=== PATIENT | male | born 1965 | race Caucasian/White ===

== ENCOUNTER 2017-02-19 10:44 | Day surgery (SDC) | payer OTHER ==
[2017-02-16 15:17] VITALS: BMI 24.6
[2017-02-19] MEDS ORDERED: PROPOFOL 20 ML ONE (10:58)
[2017-02-19 12:22] VITALS: PULSE 80
[2017-02-19 12:35] VITALS: BP 109/61; TEMP 98.2
== END 2017-02-19 12:35 | disposition home or self-care (01) ==
LOC: FASU-ENDO 10:44
PROVIDERS: ATTEND Internal Medicine Gastroenterology
PROC: 0DJD8ZZ Inspection of Lower Intestinal Tract, Via Natural or Artificial Opening Endoscopic (ICD-10-PCS; principal; 2017-02-19 11:32)
DX: Z86.010 Personal history of colon polyps (principal)

== ENCOUNTER 2022-03-27 10:21 | Day surgery (SDC) | payer OTHER ==
[2022-03-23 15:46] VITALS: BMI 24.9
[2022-03-27 13:45] VITALS: BP 126/80; PULSE 80; TEMP 98.7
== END 2022-03-27 13:45 | disposition home or self-care (01) ==
LOC: FASU-ENDO 10:21
PROVIDERS: ATTEND Internal Medicine Gastroenterology
PROC: 0DJD8ZZ Inspection of Lower Intestinal Tract, Via Natural or Artificial Opening Endoscopic (ICD-10-PCS; principal; 2022-03-27 12:29)
DX: Z86.010 Personal history of colon polyps (principal)